=== PATIENT | female | born 1940 | race Caucasian/White ===

== ENCOUNTER 2018-10-03 12:15 | Emergency (ER) | payer OTHER ==
[~2018-10-03] VITALS: Ht 154.9 cm; Wt 70.8 kg
[2018-10-03 12:44] VITALS: BP 143/78; Ht 154.9 cm; Wt 70.8 kg
== END 2018-10-03 16:14 | disposition home or self-care (01) ==
LOC: ED 12:15
DX: S52.501A Unspecified fracture of the lower end of right radius, initial encounter for closed fracture (principal); S00.33XA Contusion of nose, initial encounter; S86.992A Other injury of unspecified muscle(s) and tendon(s) at lower leg level, left leg, initial encounter; S61.232A Puncture wound without foreign body of right middle finger without damage to nail, initial encounter; W01.198A Fall on same level from slipping, tripping and stumbling with subsequent striking against other object, initial encounter; Y93.89 Activity, other specified; Y92.89 Other specified places as the place of occurrence of the external cause; Y99.8 Other external cause status